=== PATIENT | female | born 1960 | race Caucasian/White ===

== ENCOUNTER 2018-05-01 09:51 | Inpatient (IN) | payer OTHER, SELFPAY ==
[2018-04-19 09:23] VITALS: BMI 27.1
[2018-05-01] VITALS (18 sets, daily range): BP systolic 83–137; BP diastolic 43–83; PULSE 73–122; RESP 12–18; TEMP 35.6–37.1; O2SAT 94–100; BMI 27.1
--- NOTE | 2018-05-01 | DI.RAD.S_ITS ---
PROCEDURE: XR HIP W PEL IF DONE LT 2V INDICATIONS: POST OP LEFT TOTAL HIP TECHNIQUE: AP pelvis and lateral view of the left hip acquired. COMPARISON: None. FINDINGS: Bones: Patient is status post left hip arthroplasty, with hardware components in expected positions. The hip joint appears congruent. The visualized bony structures appear intact. Soft tissues: Overlying postoperative changes are noted. No suspicious soft tissue densities. IMPRESSION: Normal alignment after left total hip arthroplasty with a surgical drain overlying the operative bed. Dictated by: Juan Arias M.D. on 05/01/2018 at 16:14 Approved by: Juan Arias M.D. on 05/01/2018 at 16:14
--- NOTE | 2018-05-01 06:00 | DI.RAD.S_ITS ---
PROCEDURE: XR PELVIS 1-2V INDICATIONS: prosthesis placement TECHNIQUE: Intra-operative view of the pelvis and hip acquired. COMPARISON: None. FINDINGS: Bones: Intraoperative devices prior to placement of arthroplasty prostheses are in expected positions. No fractures or suspicious bony lesions. Soft tissues: Overlying surgical retractors are present, along with other intraoperative changes. IMPRESSION: Normal operative alignment of the devices for a left total hip arthroplasty, prior to placement of the final femoral components. Dictated by: Juan Arias M.D. on 05/01/2018 at 14:39 Approved by: Juan Arias M.D. on 05/01/2018 at 14:40
[2018-05-01] MEDS: CELECOXIB 200 MG CAPSULE PO (10:24)
[2018-05-01] MEDS: PREGABALIN 75 MG CAPSULE PO (10:24)
[2018-05-01] MEDS: ACETAMINOPHEN 325 MG TABLET 975 MG PO ×3 (10:24→20:16)
[2018-05-01] MEDS: LACTATED RINGERS 1,000 ML 42 ML IV (10:25)
[2018-05-01] MEDS: VANCOMYCIN 1,000 MG/200 ML FROZ.PIGGY 200 MG IV (10:50)
--- NOTE | 2018-05-01 11:34 | PM.PREOP ---
Pre-operative Note Interval Note History & Physical reviewed/Exam performed by Physician: Yes Changes to H&P: No
--- NOTE | 2018-05-01 11:34 | PM.OP.1 ---
Operative Date/Time/Diagnoses Date of procedure: 05/01/18 Time of procedure: 11:52 Pre-op diagnosis: Left hip osteoarthritis with a large left hip acetabular cyst Post-op diagnosis: same Procedure & Clinicians Procedure: Left total hip arthroplasty, femoral head autograft to large (2 x 1 cm) anterior acetabular cyst Same procedure as scheduled: Yes Indications: The patient has had progressively worsening left hip pain with radiographic changes consistent with arthritis. Non-operative management has failed and the patient has requested total hip replacement. The risks, benefits and alternatives to surgery were discussed with the patient prior to proceeding. Risks discussed included, but were not limited to, failure to relieve pain, leg length discrepancy, dislocation, stiffness, infection, nerve damage, deep venous thrombosis, pulmonary embolism, stroke, coma, heart attack, permanent paralysis and , as well as the potential need for eventual revision of the prosthetic. Surgeon: Aida Freeman Residence Hall Director: Tasha Moore Anesthesia Type: General and Spinal Operative Notes Findings: Severe left hip osteoarthritis Closure Type: primary Specimen(s): none sent Implants & Drains: [employer] anthology 4 standard offset, R3 48, +4 by 32 mm, 2 acetabular screws, femoral head graft to acetabular cyst Estimated Blood Loss (mL): 300 Blood products transfused: none Procedure in detail: The patient was seen in the pre-operative area, where the patient identified the left hip as the operative site and this was marked with my initials. The patient received pre-operative antibiotics and was taken to the operating room and placed on the operative table in the left lateral decubitus position after satisfactory anesthesia. A time study analyst out was performed. The left leg was prepared from the ankle to the iliac crest with ChloroPrep in the usual fashion and draped through sterile drapes. The hip was approached through an approximately 20 cm incision centered over the greater trochanter and curving gently posteriorly as it went proximally. This was carried sharply to the fascia martha, which was divided and retracted with a self retaining retractor. The trochanteric bursa was excised with care being taken to avoid the sciatic nerve, which was identified and protected throughout the case. The short external rotators were incised and the capsulomuscular flap was raised and tagged for later repair. The hip was dislocated, and a femoral neck osteotomy performed approximately 15 mm above the lesser trochanter. Retractors were placed around the femur. The canal was opened with a box cutting osteotome, followed by a T handled reamer and a lateralizing reamer. The chili pepper broach was then used, followed by sequential broaching until there was good stability of the broach in the femur. Retractors were placed to expose the acetabulum. The labrum and central soft tissues were removed. There was a large (approximately 1 x 2 cm) cyst in the anterior acetabulum and anterosuperior wall. The base of the cyst was carefully cleaned of all soft tissue. The femoral head was morcelized and the cyst was carefully packed with bone graft which was tamped into place. Reaming was performed initially going up in 2 mm increments, then 1 mm increments until good bite was obtained with an odd sized reamer. She had a fairly shallow deficient acetabulum. A 48 cup was felt to fit the AP plane of the acetabulum, the anterosuperior aspect of the acetabulum was somewhat deficient. A trial cup fit well. Reverse reaming was performed to optimize the acetabular bed. The cup 1 mm larger than the last reamer was then inserted using the appropriate anteversion guides. The cup appeared to be fairly stable but 2 additional screws were used to further stabilize the cup because of the cyst. A trial neutral liner was placed. The broach was placed in the canal. A trial head and neck were then placed and the hip relocated and checked for leg length and stability. An intraoperative film confirmed the component position and no evidence of fracture. The patient was stable in the position of sleep, of squatting, and could be put through a range of motion with 45 degrees internal rotation without dislocation. At 90 degrees flexion, internal rotation to 50 was possible before dislocation. This was felt to be satisfactory and the appropriate components were opened, and the trials were removed. The acetabular liner was impacted into position. The final stem was then impacted into the prepared femoral canal. A brief Betadine soak was performed while trialing with head options. The hip was meticulously irrigated with normal saline. Finally the femoral head was impacted onto the stem. The acetabulum was cleared of all material and the hip relocated one final time. The capsulomuscular flap was then repaired to the greater trochanter though an awl hole using the tag sutures. The short external rotators were repaired with a Nonabsorbable suture. A deep drain was placed and brought out anteriorly. The fascia martha was closed with Vicryl. The subcutaneous layer was closed with barbed sutures and SteriStrips. An Aquacel Ag dressing was applied and the patient was taken to recovery having tolerated the procedure well. Complications: none Condition: stable Disposition: Acute Care Plan for aftercare: The patient will be maintained on a standard total hip replacement protocol with weight bearing as tolerated and posterior hip precautions. The patient will receive Aspirin and sequential compression devices for DVT prophylaxis. She has a history of a DVT in regard to start Coumadin today. She will be started with 10 mg today to alternate with 5 mg and will follow up with her PCP. The patient will be discharged home when safe for the home environment.
[2018-05-01] MEDS: CEFAZOLIN 2 GM/100 ML FROZ.PIGGY IV ×2 (11:58→20:14)
--- NOTE | 2018-05-01 12:33 | SUR.OPER ---
Lateral on padded OR bed. Gel axillary roll. Arms secured on padded armboard with pillow supporting top arm. Padded hip positioner braces x4 - anterior and posterior chest and pelvis. Additional gel pad used anterior pelvis. Gel pad under bottom leg from knee to foot and secured with tape over sheet.
[2018-05-01] MEDS: BUPIVACAINE LIPOSOME 266 MG/20 ML VIAL INJ (12:39)
[2018-05-01] MEDS: BUPIVACAINE 0.25% W/ EPI VIAL 50 ML INJ (12:39)
[2018-05-01] MEDS: SODIUM CHLORIDE IRRIG SOLUTION 250 ML, EPINEPHrine 1 MG IRR (12:40)
[2018-05-01] MEDS: POVIDONE-IODINE 15 ML, SODIUM CHLORIDE 0.9% 250 ML TOP (12:42)
[2018-05-01] MEDS: SODIUM CHLORIDE 0.9% 1,000 ML 42 ML IV (13:40)
[2018-05-01] MEDS: LACTATED RINGERS 1,000 ML 125 ML IV (16:19)
--- NOTE | 2018-05-01 17:17 | PC.NURSE ---
Addendum entered by Duyen Peña R.N. 05/01/18 21:32: Pt resting at intervals. Blaze discomfort. Sat in chair Ambulated in room w/o incidence SpO2 96% RA, lungs clear. Dsg remains CDI. IVF infusing as per orders. Pt possible D/C tomorrow. Call light w/in reach, bed alarm on for pt safety. Continue w/plan of care. Original Note: Pt arrived fro PACU at 1640. Awake, drowsy. Lungs clear, SpO2 96% RA, IS to 2000 Denies discomfort at this time IV LR infusing into left hand via pump w/o incidence. Aquacell Dsg to left hip CDI Hemavac intact/patent. Stable post op course. Call light w/in reach, bed alarm on for pt safety.
[2018-05-01] MEDS: WARFARIN 7.5 MG TABLET PO (17:24)
--- NOTE | 2018-05-01 17:40 | PT.IIE ---
Current Diagnoses Unilateral primary osteoarthritis, left hip (05/01/18) Surgery Performed Operation Date: 05/01/18 12:00 Actual Procedures p Total Hip Arthroplasty(Left) - Aida Freeman MD Surgical History (Last Updated 04/19/18 @ 10:27 by Cecille Seo, RN) H/O ovarian cystectomy (Acute) H/O: (Acute) History of appendectomy (Acute) History of carpal tunnel release of both wrists (Acute ~1985) History of colonoscopy (Acute) History of tonsillectomy (Acute) Previous back surgery (Acute ~2016) S/P epidural steroid injection (Acute) S/P right rotator cuff repair (Acute) Medical History (Last Updated 04/19/18 @ 10:26 by Cecille Seo RN) Arthritis (Acute) Chronic periodontal disease (Acute) DJD (degenerative joint disease) (Acute) GERD (gastroesophageal reflux disease) (Acute) Hearing loss (Acute) Herpes zoster (Acute) History of DVT (deep vein thrombosis) (Acute) Hypothyroidism (Acute) Phlebitis (Acute) Postmenopausal (Acute) Primary osteoarthritis of left hip (Acute) Physical Therapy Inpatient Evaluation/Re-Eval M1 PT/OT-IP Prior Functional Status Start: 05/01/18 17:31 Freq: NEEDED Status: Active Protocol: Document 05/01/18 17:31 EA (Rec: 05/01/18 17:41 EA [id number]) Medical Review Prior Functional Status Medical History Reviewed Yes Diet/Fluid Consistency Regular Communication Normal Mobility and Gait Independent with the use FWW with max distance of 200 ft Activities of Daily Living and IADL's Independent Social History Household Members spouse Living Arrangements House Number of Floors (Floors) Two Floors Number of Stairs To Enter/Railing? 2 steps to get in the main house with no rails. > 5 steps to get up in the second floor; patient will stay in the second floor upon discharge Home Equipment Bedside Commode Raised Toilet Seat w/Armrests Shower Seat without Backrest Employment Status Unknown Additional Social History Comment Lives with her . M2 PT-IP Current Condition Start: 05/01/18 17:31 Freq: NEEDED Status: Active Protocol: Document 05/01/18 17:31 EA (Rec: 05/01/18 17:41 EA [id number]) Physical Therapy Current Condition Current Condition Evaluation Date 05/01/18 Treatment Diagnosis Left REHANA Onset Date 05/01/18 Precautions Posterior Hip Precautions No Hip Flexion > 90 degrees No Hip Internal Rotation No Hip Adduction Weight Bearing Status Weight Bearing Status Weight Bear as Tolerated M3 PT-IP Subjective Start: 05/01/18 17:31 Freq: NEEDED Status: Active Protocol: Document 05/01/18 17:31 EA (Rec: 05/01/18 17:41 EA [id number]) Subjective Physical Therapy Visit Type Type Initial Evaluation Visit Start Time 16:50 Visit Stop Time 17:30 Total Visit Minutes 40 Physical Therapy Visit Comments Patient Comments Patient agreeable to transfer to chair. Patient Goals Indep in all functional transfers and mobility Therapy Pain Assessment Pain When Pain Assessed At Rest Pain Present Pain Present Pain Reported Location Left Hip Intensity 1 Scale Used Numeric (1 - 10) Description Acute M4 PT-IP Mobility and Gait Start: 05/01/18 17:31 Freq: NEEDED Status: Active Protocol: Document 05/01/18 17:31 EA (Rec: 05/01/18 17:41 EA [id number]) PT-Bed Mobility Assessment Supine to Sit Supine to Sit Standby Assistance Sit to Supine Sit to Supine Standby Assistance Scooting Scooting to Edge of Bed Contact Guard Assistance PT-Transfer Assessment Sit to and From Stand Sit to and from Stand Contact Guard Assistance Equipment Transfer Assistive Device Gait Belt Front Wheeled Walker Transfers Transfer Destination Bed Chair Transfer Technique stepping Transfer Ability Level of Assist Contact Guard Assistance Comments Mobility Comments requires verbal cues place weight bearing to affected side Gait Assessment Gait Gait Assistance Required: Contact Guard Assist Able to Maintain Weight Bearing Status Yes During Gait Assistive Devices Assistive Device Gait Belt Front Wheeled Walker Gait Deviations General Gait Pattern Antalgic Decreased Stride Length Step-to Gait Factors Limiting Gait Function Factors Limiting Gait Function Decreased Activity Tolerance Decreased Strength Limited Range of Motion Pain Comments Gait Comments Requires cues to place weight on left foot PT-Balance Assessment Sitting Balance and Reactions Static Sitting Balance Ability Good Dynamic Sitting Balance Ability Good Standing Balance and Reactions Static Standing Balance Ability Good Dynamic Standing Balance Ability Fair M5 PT-IP Objective Assessments Start: 05/01/18 17:31 Freq: NEEDED Status: Active Protocol: Document 05/01/18 17:31 EA (Rec: 05/01/18 17:41 EA [id number]) Orientation Orientation/Cognition Level of Alertness Alert Orientation Name Birthday Date Year Day of Week Safety Awareness Understands Safety Issues Memory Description No Deficits Noted Gross Range of Motion Upper Extremity ROM Assessment Within Functional Limits Lower Extremity ROM Assessment Left Impaired Strength Upper Extremity Strength Assessment Within Functional Limits Lower Extremity Strength Assessment Left Impaired Comments Strength Comments Pain to left hip but with aleast 3/5 with spontaneous movement Coordination Assessment Gross Coordination Gross Coordination WNL Sensation Assessment Sensation Gross Sensation WNL Light Touch Intact Proprioception (Position) Intact M6 PT-IP Treatment Start: 05/01/18 17:31 Freq: NEEDED Status: Active Protocol: Document 05/01/18 17:31 EA (Rec: 05/01/18 17:41 EA [id number]) Physical Therapy Treatment Exercises Exercises Ankle Pumps Gluteal Sets Quad Sets Heel Slides Supine Hip Abduction Education Education Provided Precautions Weight Bearing Status Post-Op Packet Safety M7 PT-IP Assessment and Plan Start: 05/01/18 17:31 Freq: NEEDED Status: Active Protocol: Document 05/01/18 17:31 EA (Rec: 05/01/18 17:41 EA [id number]) PT Summary Assessment and Plan Potential Rehabilitation Potential Excellent Status of Condition at Evaluation Stable Summary Impairments Pain ROM Strength Balance Bed Mobility Transfers Gait Activity Tolerance Assessment Summary Patient exhibits decreased activity tolerance with decreased tolerance to weight bearing to LLE. Patient requires assistance in all transfer and mobility at this time for safety. Patient demonstrates high potential for recovery. Goals Bed Mobility Goal Independent Transfer Goal Independent Gait Goal Independent Gait Distance 60 Days to Meet Goals 2 Frequency of Treatment Frequency Of Treatment Twice a Day Treatment Plan Physical Therapy Treatment Plan Bed Mobility Training Transfer Training Gait Training Therapeutic Exercise Discharge Planning Hot or Cold Pack Recommendations To Nursing Amount of Assist Needed 1 Person Assist Discharge Recommendations PT Discharge Recommendations Home with Assistance Outpatient PT
[2018-05-01] MEDS: DOCUSATE 100 MG CAPSULE PO (20:16)
[2018-05-01] MEDS: ASPIRIN EC 81 MG TABLET PO (20:16)
[2018-05-01] MEDS: SENNOSIDES 8.6 MG TABLET 17.2 MG PO (20:17)
[2018-05-02] MEDS: LACTATED RINGERS 1,000 ML 125 ML IV (01:08)
[2018-05-02] MEDS: IBUPROFEN 600 MG TABLET PO (01:12)
[2018-05-02] MEDS: CEFAZOLIN 2 GM/100 ML FROZ.PIGGY IV (03:51)
--- NOTE | 2018-05-02 04:06 | PC.NURSE ---
ASSUMED CARE OF PT AT 2300. PT SLEEPING DURING HAND-OFF REPORT. AWAKENS TO VOICE AT 0045. A/OX3. [facility] AQUACEL DRSG C/D/I. H/V COMPRESSED AND DRAINING SANG DRAINAGE. 1 PA W/FWW TO BATHROOM; VOIDING. CALLING APPROPRIATELY FOR NEEDS. BED ALARM ON.
[2018-05-02 04:22] VITALS: BP 106/60; PULSE 91; RESP 16; TEMP 36.4; O2SAT 99
[2018-05-02] MEDS: LEVOTHYROXINE 100 MCG TABLET PO (05:32)
[2018-05-02 06:01] LABS: Hemoglobin 9.6 g/dL (12.0-16.0)
[2018-05-02 07:55] VITALS: BP 117/64; PULSE 93; RESP 16; TEMP 36.5; O2SAT 100
--- NOTE | 2018-05-02 08:35 | P.DS_ITS ---
History of Present Illness Date Patient Seen: 05/02/18 Time Patient Seen: 08:35 Chief complaint: left hip [id number] Narrative: The patient has had progressively worsening left hip pain with radiographic changes consistent with arthritis. Non-operative management has failed and the patient has requested total hip replacement. The risks, benefits and alternatives to surgery were discussed with the patient prior to proceeding. Risks discussed included, but were not limited to, failure to relieve pain, leg length discrepancy, dislocation, stiffness, infection, nerve damage, deep venous thrombosis, pulmonary embolism, stroke, coma, heart attack, permanent paralysis and , as well as the potential need for eventual revision of the prosthetic. Discharge Providers Date of admission: 05/01/18 09:51 Primary care physician: Debra Estrada MD Consults: 05/01/18 06:00 Consult to Anesthesiology Routine Comment: Consulting Provider: Anesthesiologist Reason for consultation: Regional block for post operative pain control 05/01/18 15:49 Consult to Discharge Planning Routine Comment: Consult to Physical Therapy Evaluate & Treat Comment: Physician Instructions: post op REHANA protocol Consult to Respiratory Therapy Evaluate & Treat Comment: Physician Instructions: Evaluate and treat Discharge provider: Rachele Antunez PA-C Discharge Date: 05/02/18 Summary Discharge Diagnosis: s/p left total hip arthroplasty Hospital Course: Shruthi was admitted for left total hip arthroplasty with Dr. Freeman and she consented to procedure. Hospital course was unremarkable. On POD # 1 patient was ready to DC home with her . She was eating and voiding without difficulty or assistance. She has been up and ambulating. She has her outpatient PT scheduled. She has her home medications. Status at Discharge Functional status at discharge: uses cane/walker Exam Vital Signs (past 8 hours): - 05/02/18 04:22 05/02/18 07:55 Temperature 97.5 F L 97.7 F Pulse Rate 91 H 93 H Respiratory Rate 16 16 Blood Pressure 106/60 117/64 Pulse Oximetry 99 100 Oxygen Delivery Method Room Air Oxygen Flow Rate 0 Narrative Exam Narrative: Patient sitting up in bed in NAD. She is alert and oriented X3. Dressing on left hip is CDI. Calves are soft, compressible, and nontender bilaterally. Pulses are symmetrical. SILT throughout BLEs. Her pain was well controlled last night. Objective Labs Result Diagrams: 05/02/18 05:35 Labs: Laboratory Results - last 24 hr 05/02/18 05:35 Hgb 9.6 L Hct 29.0 L Discharge Plan Discharge Plan Patient Disposition: Home Discharge comment: d/c after PT Discharge Med Rec/Prescriptions Prescriptions: New acetaminophen 325 mg Tablet 975 mg PO TID Qty: 0 RF: 0 docusate sodium 100 mg Capsule 100 mg PO BID Qty: 0 RF: 0 oxycodone 5 mg Tablet 5 mg PO Q3HR PRN (Reason: Pain, Moderate (4-6)) Qty: 0 RF: 0 warfarin 5 mg tablet 5 mg PO DAILY Qty: 30 RF: 0 ascorbic acid (vitamin C) [Vitamin C] 500 mg Tablet 500 mg PO BID Qty: 30 RF: 0 ferrous sulfate 325 mg (65 mg iron) Tablet 325 mg PO BIDWM Qty: 30 RF: 0 Continue acyclovir 400 mg Tablet 400 mg PO DAILY RF: 0 levothyroxine 100 mcg Tablet 100 mcg PO DAILY RF: 0 gabapentin 300 mg Capsule 300 - 600 mg PO BEDTIME PRN (Reason: Chronic Pain) RF: 0 glucosamine HCl 1,500 mg Tablet 1,500 mg PO DAILY RF: 0 cholecalciferol (vitamin D3) [Vitamin D3] 2,000 unit Capsule 2,000 unit PO DAILY RF: 0 ranitidine HCl 150 mg Tablet 150 mg PO DAILY RF: 0 sennosides [senna] 8.6 mg Tablet 2 tab PO BEDTIME RF: 0 Discontinued tramadol 50 mg Tablet 1 - 2 tab PO BEDTIME PRN (Reason: pain) RF: 0 ibuprofen 200 mg Tablet 600 mg PO Q4-6H PRN (Reason: Pain) RF: 0 Follow up/Referrals: Debra Estrada MD [Primary Care Provider] - (Follow up for INR checks.) Aida Freeman MD [Physician] - (Follow up in 5-7 days at your previously scheduled appointment.) Provider Discharge Instructions Diet: Diet as Tolerated Activity: Weightbearing as tolerated, use walker until cleared by physical therapy. Follow anterior hip precautions Cold/Heat Therapy: Apply ice 20 minutes at a time to surgical site at least hourly while awake Other treatments: Have INR checked through primary care provider. Skin/Wound/Dressing Care Report to your healthcare provider any signs of infection, such as:: chills, fever, night sweats, increased pain, unusual drainage and unusual redness Dressing: Keep dressing clean, dry, and intact. May shower with dressing in place but no soaking. Visit Report/Discharge Packet Instructions: DI for Hip Replacement Visit Report Forms: Stroke Signs & Symptoms Discharge Data Primary Care Provider: Debra Estrada Attending Provider: Aida Freeman Admit Date/Time: 05/01/18 09:51 Quality VTE Deep Vein Thrombosis/Pulmonary Embolism Present on Admission: No
[2018-05-02] MEDS: FERROUS SULFATE 325 MG TABLET PO (08:39)
[2018-05-02] MEDS: DOCUSATE 100 MG CAPSULE PO (08:39)
[2018-05-02] MEDS: CHOLECALCIFEROL (VITAMIN D3) 1,000 UNIT TABLET 2000 UNIT PO (08:39)
[2018-05-02] MEDS: ACETAMINOPHEN 325 MG TABLET 975 MG PO (08:40)
== END 2018-05-02 10:05 | disposition home or self-care (01) | DRG 470 ==
PROVIDERS: Admitting Provider Orthopaedic Surgery; PCP Family Medicine; Visit Provider Orthopaedic Surgery
PROC: 0SRB0JZ Replacement of Left Hip Joint with Synthetic Substitute, Open Approach (ICD-10-PCS; CPT 27130; principal; 2018-05-01 12:00)
DX: M16.12 Unilateral primary osteoarthritis, left hip (principal); K21.9 Gastro-esophageal reflux disease without esophagitis; M71.352 Other bursal cyst, left hip; E03.9 Hypothyroidism, unspecified
CPT/HCPCS: 36415; 72170; 73502; 85014; 85018; 97116; 97530; 97535; C1776; C9290; J0171; J0690; J1100; J2250; J2405; J2704; J3010; J3370

== ENCOUNTER 2019-05-01 14:44 | Outpatient (CLI) | payer OTHER, SELFPAY ==
[2018-05-01 15:51] VITALS: BMI 27.1
[2019-05-01] VITALS (8 sets, daily range): BP systolic 113–147; BP diastolic 74–89; PULSE 74–99; RESP 16; TEMP 36; O2SAT 97–100
--- NOTE | 2019-05-01 14:46 | DI.RAD.S_ITS ---
PROCEDURE: PAIN L/S TRANSFORAMINAL INJECT INDICATIONS: SPINAL STENOSIS FINDINGS: Fluoroscopic spot filming was performed to verify placement of spinal needles at the right L3-4 level(s), as labeled on the films. Appropriate location(s) of the needle tip(s) was confirmed by injection of iodinated contrast. IMPRESSION: Successful needle tip localization for right L3-L4 transforaminal presumed steroid injection. Dictated by: Juan Arias M.D. on 05/02/2019 at 8:43 Approved by: Juan Arias M.D. on 05/02/2019 at 8:43
--- NOTE | 2019-05-01 15:25 | P.PCN_ITS ---
Procedures Date/Time Date of procedure: 05/01/19 Time of procedure: 15:52 General Procedure description: PROVIDER: Den Alonso DO Operative Note PREOP DIAGNOSIS 1. FORAMINAL STENOSIS WITH LE SYMPTOMS, POST OP DIAGNOSIS 1. FORAMINAL STENOSIS WITH LE SYMPTOMS, PROCEDURES 1. FLUOROSCOPICALLY GUIDED CONTRAST CONTROLLED TRANSFORAMINAL EPIDURAL STEROID INJECTION - RIGHT L3/4 TFESI SURGEON: Den Alonso DO INDICATIONS Shruthi is referred by Dr. Estrada for treatment of Foraminal Stenosis with right LE Symptoms FINDINGS Foraminal Nerve Root Compression secondary to disc disease and facet hypertrophy DESCRIPTION OF PROCEDURE Following review of allergy and review of potential side effects and complications, including, but not necessarily limited to, infection, allergic reaction, local tissue breakdown, stroke, temporary or permanent nerve injury, paralysis, and possible , the patient indicated that the patient understood and agreed to proceed. An informed consent document was signed by the patient, witnessed by a nurse, and placed in the patient's chart. Additionally, other treatment options including medications, modalities, and physical therapy were reviewed with the patient. After review of previous anaesthesic history and IV conscious sedation the patient was deemed safe to proceed with todays procedure with IV conscious sedation as ASA class II designation. Safety time-out was performed to confirm patient ID, procedure to be performed and site of procedure. IV sedation was accomplished with a combination of 2mg of Versed and 50mcg of Fentanyl was administered by the RN after DO order, titrated to patient comfort during the course of the procedure while the patient remained responsive to all verbal commands In the prone position following sterile prep and drape of the lumbar region, the right L3/4 posterior neuroforamen was identified fluoroscopically. The skin was anesthetized via a 25-gauge 1.5-inch needle with 1% lidocaine solution. At this point, a 25-gauge 3.5-inch spinal needle was atraumatically introduced and advanced under fluoroscopic guidance through the posterior right L3/4 neuroforamen to approximately the anterior aspect of the canal. Depth was confirmed on lateral view. Following negative aspiration, injection of approximately 1.5 cc of Isovue 200 under live fluoroscopy in the AP view confirmed excellent flow along the nerve root, into the epidural space without vascular or intrathecal uptake observed Radiological data, including multiple fluoroscopic views of the lumbosacral spine, reveal a spinal needle at the right L3/4 posterior neuroforamen. Subs equent views show flow of contrast material flowing superiorly and inferiorly along the nerve root confirming epidural flow. Subsequently, a test dose of 1.5 cc of 1% lidocaine solution was administered and patient was observed for two minutes for signs or symptoms of complications, including abdominal pain, shortness of breath, bilateral upper or lower extremity weakness, nausea and vomiting, prior to steroid injection. At this point, a total of 3cc or 20mg of dexamethasone and 6mg of betamethasone was injected without incident. The patient tolerated the procedure well without signs or symptoms of complications prior to transfer to the recovery area continued monitoring without incident. The patient was then transferred to the recovery area where they were observed for an appropriate time after the injection. The patient reported a VAS score of 7 prior to the procedure and a post-procedure VAS of 0. Total Fluoroscopy Time: 14 seconds Total Conscious Sedation Time: 24min POST OP INSTRUCTIONS The patient was provided a Pain Log to continue to record their response to the target-specific procedure prior to follow-up visit with their referring physician. Additionally, specific post-injection care instructions and a contact number to our office were provided if concerns arise regarding possible complications associated with the procedure are suspected. Den Alonso, Complications: none
[2019-05-01] MEDS: MIDAZOLAM 5 MG/5 ML VIAL IV (15:34)
[2019-05-01] MEDS: fentaNYL 100 MCG/2 ML INJ 50 MCG IV (15:34)
[2019-05-01] MEDS: IOPAMIDOL 15 ML VIAL 3 ML INJ (15:40)
[2019-05-01] MEDS: BUPIVACAINE 0.25% (PF) VIAL 2 ML INJ (15:40)
[2019-05-01] MEDS: DEXAMETHASONE 10 MG/ML VIAL 20 MG INJ (15:40)
[2019-05-01] MEDS: BETAMETHASONE 30 MG/5 ML MDV 6 MG INJ (15:41)
--- NOTE | 2019-05-01 15:47 | PC.NURSE ---
ASSISTING PT OFF TABLE AND TRANSPORTING TO POST PROC AREA IN STABLE CONDITION. PASSING RN CARE OF PT TO ELIO Beatty RN.
== END 2019-05-01 16:30 | disposition home or self-care (01) ==
LOC: RAD 14:45
PROVIDERS: PCP Family Medicine; Visit Provider Physical Medicine & Rehabilitation
DX: M48.061 Spinal stenosis, lumbar region without neurogenic claudication (principal); M51.16 Intervertebral disc disorders with radiculopathy, lumbar region
CPT/HCPCS: 64483; 99152; J0702; J1100; J2250; J3010